=== PATIENT | male | born 1965 | race Caucasian/White ===

== ENCOUNTER → 2024-09-18 12:23 | Outpatient (REF) | payer MEDICARE, BC, SELFPAY | LOC: RAD 12:23 | PROVIDERS: ATTENDING PHYSICIAN Internal Medicine Critical Care Medicine; FAMILY PHYSICIAN Family Medicine | DX: F17.210 Nicotine dependence, cigarettes, uncomplicated (principal); M25.551 Pain in right hip | CPT/HCPCS: 71271; 73502 ==